=== PATIENT | female | born 2005 | race American Indian/Alaskan Native ===

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

== ENCOUNTER 2024-05-16 22:29 | Emergency (ER) | payer MEDICAID ==
[2024-05-16] MEDS: Albuterol/Ipratropium 3.0-0.5 MG/3 ML Neb Soln NEB ONE (23:55)
[2024-05-17] MEDS: Dexamethasone 4 MG/ML SDV PO ONE (00:18)
[2024-05-17] MEDS: Albuterol 6.7 GM Inhaler INH ONE (00:18)
== END 2024-05-17 00:23 | disposition home or self-care (01) ==
LOC: DL.ED 22:29
DX: J40 Bronchitis, not specified as acute or chronic (principal)
CPT/HCPCS: 71045; 87804; 99285; A9270-GY; J7620-GY; J8540; U0002

== ENCOUNTER 2024-12-17 12:19 | Emergency (ER) | payer MEDICAID ==
[2024-12-17] MEDS: Dexamethasone 4 MG/ML SDV IM ONE (12:45)
[2024-12-17] MEDS: Take Home: Amoxicillin 500 MG, 6 Cap Pack PO ONE (12:53)
[2024-12-17] MEDS: Take Home: Acetaminophen/HYDROcodone 325-5 MG, 5 Tab Pack PO ONE (12:53)
== END 2024-12-17 12:55 | disposition home or self-care (01) ==
LOC: DL.ED 12:19
DX: J02.0 Streptococcal pharyngitis (principal)
CPT/HCPCS: 87081; 87430; 96372; 99283; A9270; J1100